=== PATIENT | female | born 1960 | race Caucasian/White ===

== ENCOUNTER 2021-12-10 10:31 | Day surgery (SDC) | payer MEDICAID ==
[~2021-12-10] VITALS: Ht 157.5 cm; Wt 82.3 kg
[2021-12-10 10:50] VITALS: BP 145/82
[2021-12-10] MEDS ORDERED: VENE100T PO (11:18)
[2021-12-10] MEDS ORDERED: BUPR-94 PO (11:18)
[2021-12-10] MEDS ORDERED: QUET50TA PO (11:18)
[2021-12-10] MEDS ORDERED: VENL75TA4 PO (11:18)
[2021-12-10] MEDS ORDERED: DOCU100C40 PO (11:18)
[2021-12-10] MEDS ORDERED: ACYC-1 PO (11:18)
[2021-12-10] MEDS ORDERED: ONDA8TAB13 PO (11:18)
[2021-12-10] MEDS ORDERED: UMEC1DIS (11:18)
[2021-12-10] MEDS ORDERED: NICO-687 TOP (11:18)
[2021-12-10] MEDS ORDERED: ESTR0.5T4 PO (11:18)
[2021-12-10] MEDS ORDERED: AMLO10TA PO (11:20)
[2021-12-10] MEDS ORDERED: ALPR-624 PO (11:20)
[2021-12-10] MEDS: normal saline 1000ml 1,000 ML IV PRN ×2 (12:00→13:12)
[2021-12-10] MEDS ORDERED: fentaNYL/PF 50MCG/1 ML 2ML syringe ONE (13:32)
[2021-12-10] MEDS ORDERED: midazolam 1 mg/ML 2ml injection ONE ×2 (13:32→14:10)
[2021-12-10] MEDS ORDERED: heparin sodium, porcine/PF 100unit/ml 5ML syringe ONE (13:32)
--- NOTE | 2021-12-10 13:35 | NUR ---
Pt left unit for procedure
[2021-12-10 14:30] VITALS: BP 115/67
--- NOTE | 2021-12-10 14:42 | NUR ---
Pt back in room. Site stable, no s/s of bleeding or infection. Sitting up in bed. VS stable as charted. Pt eating lunch tray. Denies SOB. Denies pain.
[2021-12-10 14:45] VITALS: BP 118/82
--- NOTE | 2021-12-10 14:54 | NUR ---
Pt requesting lunch tray. Ate 50% of hot lunch tray. Site stable, Rosenda CD&I. No s/s of bleeding or infection.
[2021-12-10 15:00] VITALS: BP 150/70
[2021-12-10 15:15] VITALS: BP 147/80
== END 2021-12-10 15:30 | disposition home or self-care (01) ==
LOC: SSTAY O 10:31
PROVIDERS: ATTEND Preventive Medicine Aerospace Medicine
DX: C92.00 Acute myeloblastic leukemia, not having achieved remission (principal); Z98.890 Other specified postprocedural states; Z96.611 Presence of right artificial shoulder joint
CPT/HCPCS: 36561; 76937; 77001; 99152; 99153; C1769; C1788; C1894; J1642; J2250; J3010; J7030